=== PATIENT | male | born 1945 | race Caucasian/White ===

== ENCOUNTER 2016-05-31 05:13 | Day surgery (SDC) | payer MEDICARE, OTHER ==
[~2016-05-31] VITALS: Ht 170.2 cm; Wt 81.6 kg
[~2016-05-31 05:13] MED LIST: ACET325T33 PO; AMLO-145 PO; AMPI3VIA5 IVPB; ASPI81TA3 PO; ATOR40TA68 PO; Accu-Chek Test Strip XX; CHOL100062 PO; CLON-379 PO; DEXT37.54 BUCCAL; DEXT37.54 PO; DEXT50DI9 IV; DOCU-144 PO; DOXA2TAB61 PO; Docusate Sodium/Ferrous Fumar PO; FENO145T25 PO; GLUC1VIA7 IM; HEP5KI SC; HYDR-3504 PO; HYDR-3672 PO; LANT3I SC; LISI20TA11 PO; MCN2C15 TOP; Miscellaneous Information XX; NOVO3I SC; NS3ML IV; ONDA4TAB95 PO; PANT40TA4 PO; SODI473S19 IRR; TYL650R PR; UDMOM PO; ZOF4I IV; [UNRECOGNIZED DRUG - CODE] PO
[2016-05-31] MEDS ORDERED: TROPICAMIDE 1% 2 ML OPH OPER SCH (05:30)
[2016-05-31] MEDS ORDERED: CIPROFLOXACIN 0.3% 2.5 ML OPH OPER SCH (05:30)
[2016-05-31] MEDS ORDERED: CYCLOPENTOLATE/PHENYLEPH 2 ML OPH OPER SCH (05:30)
[2016-05-31] MEDS ORDERED: DICLOFENAC 0.1% 2.5 ML OPH OPER SCH (05:30)
[2016-05-31 06:10] VITALS: Ht 170.2 cm; Wt 81.6 kg
[2016-05-31 06:17] VITALS: BP 134/52; PULSE 58; RESP 18
[2016-05-31] MEDS ORDERED: CARBACHOL 0.01% 1.5 ML OPH INJ ONE (06:30)
[2016-05-31] MEDS ORDERED: CEFAZOLIN 1 GM INJ ONE (06:30)
[2016-05-31] MEDS ORDERED: EPINEPHrine 1 MG INJ ONE (06:31)
[2016-05-31] MEDS ORDERED: GENTAMICIN 80 MG INJ ONE (06:31)
[2016-05-31] MEDS ORDERED: DEXAMETHASONE 4 MG/ML 1 ML INJ ONE (06:31)
[2016-05-31] MEDS ORDERED: HYALURONATE/CHONDROITIN 1ML OPH INJ ONE (06:32)
[2016-05-31] MEDS ORDERED: LIDOCAINE 4% (MPF) 5 ML INJ ONE (06:32)
--- NOTE | 2016-05-31 06:34 | PREOPHP ---
DATE OF ADMISSION: 05/31/2016 HISTORY OF PRESENT ILLNESS: This 70-year-old patient is admitted for elective cataract surgery of t he left eye. The patient has had decreased vision over the past years' time and has been under karissa tment for proliferative diabetic retinopathy for which he has received intravitreal Avastin injectio ns which has caused the progression of the cataract formation in the left eye. The patient has also had a vitreous hemorrhage in the right eye secondary to his diabetic eye disease, which has current ly resolved. The patient's systemic history is positive for insulin-dependent diabetes mellitus, sy stemic hypertension and hypercholesterolemia. CURRENT MEDICATIONS INCLUDE: 1. Hydralazine. 2. Clopidogrel. 3. Amlodipine. 4. Lisinopril. 5. Tricor. 6. Atorvastatin. 7. Terazosin. 8. Insulin. 9. Victoza. PHYSICAL EXAMINATION: The visual acuity with best correction is 20/40 in the right eye and 20/100 i n the left eye. Slit lamp examination reveals a ptosis of the right upper eyelid. The patient has anterior cortical and nuclear sclerotic cataracts present in both eyes. Applanation tonometry is 15 mmHg. Examination of the retina reveals no evidence of macular edema in the right eye and some min imal macular edema with epiretinal membrane in the left eye. DIAGNOSIS: Cataract, left eye. PLAN: Cataract extraction with lens implant, left eye. The risks and alternatives to the surgery h ave been discussed with the patient as well as the potential limitation of improved visual acuity du e to the history of proliferative diabetic retinopathy and diabetic macular edema. The patient unde rstands this and agrees to proceed with surgery in hopes of improving visual acuity leading to a gre ater ability to perform activities of daily living. Dictated By: EDUARD SHAFFER/RAMEZ Conf#: [id number] DID#: [id number]
[2016-05-31] MEDS ORDERED: LACT1CAP47 PO (06:41)
[2016-05-31] MEDS ORDERED: CLOP75TA4 PO (06:41)
[2016-05-31] MEDS ORDERED: TERA2CAP3 PO (06:41)
[2016-05-31] MEDS ORDERED: victoza (06:41)
[2016-05-31] MEDS ORDERED: LANT3I SC (06:41)
[2016-05-31] MEDS ORDERED: CEFAZOLIN 1 GM INJ INJ ONE (06:57)
[2016-05-31] MEDS ORDERED: DEXAMETHASONE 4 MG/ML 1 ML INJ INJ ONE (06:57)
[2016-05-31] MEDS ORDERED: CARBACHOL 0.01% 1.5 ML OPH INJ IO ONE (06:57)
[2016-05-31] MEDS ORDERED: HYALURONATE/CHONDROITIN 1ML OPH INJ IO ONE (06:57)
[2016-05-31] MEDS ORDERED: PROPOFOL 20 ML ONE (07:34)
[2016-05-31] MEDS ORDERED: DIPHENHYDRAMINE 50 MG INJ IV PRN (08:00)
[2016-05-31] MEDS ORDERED: METOCLOPRAMIDE 10 MG INJ IV PRN (08:00)
[2016-05-31] MEDS ORDERED: MIDAZOLAM 1 MG/ML 2 ML INJ IV PRN (08:00)
[2016-05-31] MEDS ORDERED: MEPERIDINE 25 MG INJ IV PRN (08:00)
[2016-05-31] MEDS ORDERED: FENTAnyl 50 MCG/ML VIAL IV PRN ×2 (08:00)
[2016-05-31] MEDS ORDERED: ONDANSETRON 4 MG INJ IV PRN (08:00)
[2016-05-31 08:01] VITALS: BP 141/52; PULSE 57; RESP 16
[2016-05-31 08:03] VITALS: BP 141/52; PULSE 57; RESP 16
[2016-05-31 08:06] VITALS: BP 132/54; PULSE 56; RESP 18
[2016-05-31 08:11] VITALS: BP 117/57; PULSE 56; RESP 19
[2016-05-31 08:48] VITALS: BP 131/59; PULSE 63; RESP 18
--- NOTE | 2016-05-31 09:39 | OPR ---
DATE OF OPERATION: 05/31/2016 PREOPERATIVE DIAGNOSIS: Cataract, left eye. POSTOPERATIVE DIAGNOSIS: Cataract, left eye. NAME OF PROCEDURE: Cataract extraction with lens implant, left eye. SURGEON: Eduard Manjarrez MD ANESTHESIA: Local standby. ANESTHESIOLOGIST: Dr. Bello. OPERATION: Phacoemulsification with posterior chamber intraocular lens implant, left eye. PROCEDURE: The patient was brought to the operating room and placed on the table with an IV in plac e and the patient attached to an early morning. Oxygen was given via face mask. After some intravenous sedation was administered, local anesthesia was given using Xylocaine 2% with epinephrine, mixed with Marcaine 0.5%. This was given in a lid block and retrobulbar injection. The patient was then prepped and draped in the usual sterile manner. A wire lid speculum was inserted between the lids of the left eye. A Superblade was used to enter th e anterior chamber at the corneoscleral limbus at the 10:30 o'clock position. A separate incision wa s made using a 3.0-mm keratome which entered the corneoscleral junction at the 12 o'clock position. Through this 3-mm opening, an irrigating cystitome was introduced into the anterior chamber. The jung mber was filled with Viscoat and an anterior capsulotomy was performed. Balanced salt solution was t hen used for hydrodissection of the lens. A phacoemulsification handpiece was then brought into the field and introduced into the anterior chamber. The lens nucleus was emulsified using a deep groove and cracking the nucleus into quadrants. Following this, each quadrant was aspirated and emulsified at the pupillary margin. After this was completed, the irrigation/aspiration handpiece was brought to the field, introduced i nto the posterior chamber, and the lens cortical material was removed. When this was completed, earnest tional Viscoat was injected into the anterior and posterior chambers. The 3-mm opening had its internal lips enlarged, and then the posterior chamber intraocular lens avani suring 20.5 diopter (Bausch and Lomb model LI61AO) was then injected into the posterior chamber usin g the lens injector system. After the leading haptic was introduced into the capsular bag and the le ns optic was present in the center of the eye, the injector was removed and the trailing haptic was grasped with non-toothed forceps and introduced into the capsular fold superiorly. A Sinskey hook wa s then used to rotate the intraocular lens so that the lips were oriented in the horizontal meridian . One 10-0 nylon suture was placed across the wound. Prior to tying, the irrigation/aspiration handpiece was reintroduced into the anterior chamber to re move the Viscoat. Miochol was instilled to constrict the pupil, and then the 10-0 nylon suture was t ied. The ends were cut short and then the knot was buried. Then, 0.5 mL of dexamethasone and 0.5 mL of Ancef were injected into the sub-Tenon space in the infe rior fornix. Ciloxan drops were then placed on the surface of the eye. The speculum was removed and a patch was applied. The patient then left the operating room in satisfactory condition. Dictated By: EDUARD SHAFFER/RAMEZ Conf#: [id number] DID#: [id number]
== END 2016-05-31 09:13 | disposition home or self-care (01) ==
LOC: SDS 05:13
PROVIDERS: ATTEND Ophthalmology
DX: H25.12 Age-related nuclear cataract, left eye (principal); E11.9 Type 2 diabetes mellitus without complications; I25.10 Atherosclerotic heart disease of native coronary artery without angina pectoris; E78.5 Hyperlipidemia, unspecified; Z95.1 Presence of aortocoronary bypass graft; Z95.0 Presence of cardiac pacemaker
CPT/HCPCS: 66984; 82962; J0171; J0690; J1100; J1580; V2632

== ENCOUNTER 2018-09-04 09:32 | Day surgery (SDC) | payer MEDICARE, OTHER ==
[~2018-09-04] VITALS: Ht 170.2 cm; Wt 83.0 kg
[2018-09-04] VITALS (16 sets, daily range): BP systolic 143–192; BP diastolic 60–80; PULSE 49–50; RESP 16–27; Ht 170.2 cm; Wt 83.0 kg
[~2018-09-04 09:32] MED LIST changes: +ASPI-903 PO; -ASPI81TA3 PO; +CARV6.2579 PO; +CEFAZOLIN 2 GM/50 ML (PMX) 50 ML IVPB ONE; +CLOP75TA19 PO; +CLOP75TA27 PO; +CYAN500T46 PO; +FURO40TA4 PO; +INSU200I4 SQ; +LACT1CAP47 PO; +LISI-471 PO; -LISI20TA11 PO; +TERA2CAP3 PO; +victoza
[2018-09-04] MEDS ORDERED: ACETAMINOPHEN 500 MG TAB ONE (11:06)
[2018-09-04] MEDS ORDERED: ACETAMINOPHEN 500 MG TAB PO ONE (11:30)
[2018-09-04] MEDS ORDERED: MIDAZOLAM 1 MG/ML 2 ML INJ ONE (11:42)
[2018-09-04] MEDS ORDERED: LIDOCAINE 2% (SDV) 5 ML INJ ONE (11:42)
[2018-09-04] MEDS ORDERED: FENTAnyl 50 MCG/ML VIAL ONE (11:42)
[2018-09-04] MEDS ORDERED: PROPOFOL 60 ML ONE (11:42)
[2018-09-04] MEDS ORDERED: PROPOFOL 200 MG INJ ONE (11:42)
[2018-09-04] MEDS ORDERED: CEFAZOLIN 1 GM INJ ONE (11:42)
--- NOTE | 2018-09-04 12:08 | HPN ---
Date/Time of Note Date/Time of Note DATE: 09/04/18 TIME: 12:08 Interval H&P Admission Note Pt. seen H&P reviewed: No system changes MIGUEL BERNAL DPM Sep 04, 2018 12:08
[2018-09-04] MEDS ORDERED: ONDANSETRON 4 MG INJ IV PRN ×2 (12:30→13:00)
[2018-09-04] MEDS ORDERED: HYDROCODONE/APAP (5/325) TAB PO PRN (12:30)
--- NOTE | 2018-09-04 12:36 | PREAC ---
Date/Time of Note Date/Time of Note DATE: 09/04/18 TIME: 12:30 Anesthesia Eval and Record Evaluation Time Pre-Procedure Interview DATE: 09/04/18 TIME: 12:30 Age 73 Sex male NPO: 8 hrs Preoperative diagnosis R foot osteomyelitis 2nd metatarsal Planned procedure R foot 2nd digit and partial 2nd ray amputation Past Medical History Past Medical History: Includes Cardio: HTN, Dyslipidemia, CAD, CABG, PTCA/Stent, Other (aortic stenosis, mild ) Endo: Diabetes, Other (PVD) Renal: CKD Heme: Anemia Surgery & Anesthesia Issues No known issue (pacemaker, CABG, parathyroid surgery, PTCA stent) Meds Anticoagulation: No Beta Lina within 24 hr: Yes Reported Medications Insulin Degludec (Tresiba Flextouch U-200) 200 Unit/1 Ml Insuln.pen, 22 UNIT SQ AC BREAKFAST DINNER 09/04/18 Furosemide* (Furosemide*) 40 Mg Tablet, 40 MG PO MON-, TAB 09/04/18 Terazosin Hcl* (Terazosin Hcl*) 2 Mg Capsule, 4 MG PO HS, CAP 09/04/18 Atorvastatin* (Atorvastatin*) 40 Mg Tablet, 40 MG PO QHS, #30 TAB 09/04/18 Lisinopril* (Lisinopril*) 20 Mg Tablet, 20 MG PO DAILY, #30 TAB 09/04/18 Clopidogrel Bisulfate (Clopidogrel) 75 Mg Tablet, 75 MG PO DAILY, #30 TAB 09/04/18 Carvedilol* (Carvedilol*) 6.25 Mg Tablet, 6.25 MG PO BID, #60 TAB 09/04/18 Hydralazine Hcl* (Hydralazine Hcl*) 50 Mg Tab, 50 MG PO TID, #90 TAB 09/04/18 Cholecalciferol* (Vitamin D3*) 1,000 Unit Tablet, 1000 UNIT PO DAILY, TAB 09/04/18 Cyanocobalamin* (Vitamin B12*) 500 Mcg Tab, 1000 MCG PO DAILY, TAB 09/04/18 Discontinued Reported Medications [victoza] No Conflict Check 05/31/16 Insulin Glargine* (Lantus*) 100 Unit/Ml Soln, 10 UNIT SC BID, #1 VIAL 05/31/16 Terazosin Hcl* (Terazosin Hcl*) 2 Mg Capsule, 2 MG PO HS, CAP 05/31/16 Lactobacillus Acidophilus (Probiotic) 1 Each Capsule, 1 CAP PO DAILY, CAP 05/31/16 Clopidogrel Bisulfate* (Clopidogrel Bisulfate*) 75 Mg Tablet, 75 MG PO DAILY, #30 TAB 05/31/16 Fenofibrate Nanocrystallized* (Tricor*) 145 Mg Tablet, 145 MG PO DAILY, TAB 07/14/14 Atorvastatin* (Atorvastatin*) 40 Mg Tablet, 40 MG PO HS, TAB 07/14/14 Lisinopril* (Lisinopril*) 20 Mg Tablet, 20 MG PO BID, TAB 07/14/14 Amlodipine Besylate* (Amlodipine Besylate*) 5 Mg Tablet, 5 MG PO BID, TAB 07/14/14 Cholecalciferol* (Vitamin D3*) 1,000 Unit Tablet, PO DAILY, TAB 07/14/14 Cyanocobalamin* (Vitamin B-12*) 2,000 Mcg Tablet.sa, PO, TAB 07/14/14 Aspirin* (Aspirin* Chew) 81 Mg Tab.chew, 81 MG PO DAILY, TAB.CHEW 07/14/14 Discontinued Scripts Ampicillin Sodium-Sulbactam Sodium (Unasyn*) 3 Gm/100 Ml Iv.soln., 3 GM IVPB Q8 for 4 Days, EA Prov:LEÓN MALIK MD 05/15/15 Sodium Chloride* (NS* 3 ml (Saline Flush)) 3 Ml Soln, 3 ML IV .PER PROTOCOL for 30 Days Prov:LEÓN MALIK MD 05/15/15 Sodium Hypochlorite (Dakin's (1/4 Strength)) 1 Applic Irrig.soln, 1 APPLIC IRR BID, #30 Prov:LEÓN MALIK MD 05/15/15 Pantoprazole* (Pantoprazole*) 40 Mg Tabec, 40 MG PO DAILY@06, #30 Prov:LEÓN MALIK MD 05/15/15 Ondansetron Hcl* (Zofran*) 2 Mg/Ml Soln, 4 MG IV Q6H PRN for NAUSEA AND/OR V OMITING for 30 Days Prov:LEÓN MALIK MD 05/15/15 Ondansetron Hcl* (Ondansetron Hcl*) 4 Mg Tab, 4 MG PO Q6H PRN for NAUSEA AND/OR VOMITING for 30 Days, TAB Prov:LEÓN MALIK MD 05/15/15 Ondansetron Hcl* (Zofran*) 2 Mg/Ml Soln, 4 MG IV Q4H PRN for NAUSEA AND/OR VOMITING for 30 Days Prov:LEÓN MALIK MD 05/15/15 [Miscellaneous Information] 1 EA EA No Conflict Check, 1 EA XX NOTE, #30 EA Prov:LEÓN MALIK MD 05/15/15 Miconazole Nitrate* (Miconazole Nitrate*) 1 Applic Cr, 1 APPLIC TOP BID, #30 Prov:LEÓN MALIK MD 05/15/15 Magnesium Hydroxide* (Alejandra' MOM*) 30 Ml Susp, 30 ML PO DAILY PRN for CONSTIPATION, #30 Prov:LEÓN MALIK MD 05/15/15 Insulin Glargine* (Lantus*) 100 Unit/Ml Soln, 12 UNIT SC Q12 for 30 Days Prov:LEÓN MALIK MD 05/15/15 Insulin Aspart* (Novolog Insulin Pen*) 100 Unit/Ml Soln, 0 UNIT SC WITH MEALS BEDTIME, #30 Prov:LEÓN MALIK MD 05/15/15 Insulin Aspart* (Novolog Insulin Pen*) 100 Unit/Ml Soln, 10 UNIT SC WITH MEALS, #30 Prov:LEÓN MALIK MD 05/15/15 Hydrocodone Bit-Acetaminophen (Hydrocodone-APAP) 1 Tab Tab, 1 TAB PO Q6H PRN for pain for 30 Days, TAB Prov:LEÓN MALIK MD 05/15/15 Hydralazine Hcl* (Hydralazine Hcl*) 50 Mg Tab, 100 MG PO TID for 30 Days, TAB Prov:LEÓN MALIK MD 05/15/15 Heparin Sodium,Porcine/Pf (Heparin Na 5,000 Units/0.5 Ml) 5,000 Unit/0.5 Ml Soln, 5000 UNIT SC Q8 for 30 Days Prov:LEÓN MALIK MD 05/15/15 Glucagon* (Glucagen*) 1 Mg Soln, 1 MG IM Q15M PRN for DECREASED GLUCOSE for 30 Days Prov:LEÓN MALIK MD 05/15/15 Doxazosin Mesylate* (Cardura*) 2 Mg Tab, 4 MG PO HS, #30 TAB Prov:LEÓN MALIK MD 05/15/15 [Docusate Sodium/Ferrous Fumar] 1 TAB TABSR No Conflict Check, 1 TAB PO BID, #30 TAB Prov:LEÓN MALIK MD 05/15/15 Docusate Sodium* (Colace*) 100 Mg Cap, 100 MG PO Q12H PRN for CONSTIPATION, #30 CAP Prov:LEÓN MALIK MD 05/15/15 Dextrose (Glutose 15) 15 Gm Gel, 15 GM BUCCAL Q15M PRN for DECREASED GLUCOSE for 30 Days Prov:LEÓN MALIK MD 05/15/15 Dextrose (D50w) 50 Ml Soln, 50 ML IV Q15M PRN for DECREASED GLUCOSE for 30 Days Prov:LEÓN MALIK MD 05/15/15 Dextrose (D50w) 50 Ml Soln, 25 ML IV Q15M PRN for DECREASED GLUCOSE for 30 Days Prov:LEÓN MALIK MD 05/15/15 Dextrose (Glutose 15) 15 Gm Gel, 22.5 GM PO Q15M PRN for DECREASED GLUCOSE for 30 Days Prov:LEÓN MALIK MD 05/15/15 Dextrose (Glutose 15) 15 Gm Gel, 15 GM PO Q15M PRN for DECREASED GLUCOSE for 30 Days Prov:LEÓN MALIK MD 05/15/15 Clonidine Hcl* (Clonidine Hcl*) 0.1 Mg Tab, 0.1 MG PO TID PRN for HTN for 30 Days, TAB Prov:LEÓN MALIK MD 05/15/15 Acetaminophen* (Acephen*) 650 Mg Supp, 650 MG MT Q6H PRN for PAIN LEVEL 1-3 OR FEVER for 30 Days, SUPP Prov:LEÓN MALIK MD 05/15/15 Acetaminophen* (Tylenol*) 325 Mg Tab, 650 MG PO Q6H PRN for PAIN LEVEL 1-3 OR FEVER for 30 Days, TAB Prov:LEÓN MALIK MD 05/15/15 [Accu-Chek Test Strip] 1 EA EA No Conflict Check, 1 EA XX AC MEALS AND BEDTIME for 30 Days, EA Prov:LEÓN MALIK MD 05/15/15 [Accu-Chek Test Strip] 1 EA EA No Conflict Check, 1 EA XX 02 for 30 Days, EA Prov:LEÓN MALIK MD 05/15/15 Meds reviewed: Yes Allergies Coded Allergies: No Known Drug Allergies (Verified Allergy, Unknown, 09/04/18) Allergies Reviewed: Yes Labs/Studies Labs Reviewed: Reviewed by anesthesiologist Result Diagram: 09/04/18 1040 Laboratory Tests 09/04/18 10:40 test: N/A Studies: ECG (pacemaker), CXR (no active disease) Pre-procedure Exam Last vitals Vital Signs Date Temp Pulse Resp B/P (MAP) Pulse Ox O2 O2 Flow FiO2 Time Delivery Rate 09/04/18 97.2 50 16 176/77 99 Room Air 10:57 (110) Airway: Adequate mouth opening, Adequate thyromental dist Mallampati: Mallampati II Teeth: Normal Lung: Normal Heart: Normal ASA Physical Status ASA physical status: 3 Emergency: None Planned Anesthetic General/MAC: MAC Pre-operative Attestations Prior to commencing anesthesia and surgery, the patient was re-evaluated, there was verification of: *The patient's identity *The results of appropriate recent lab work and preoperative vital signs *The above evaluation not changing prior to induction *Anesthetic plan, risk benefits, alternative and complications discussed with patient/family; questions answered; patient/family understands, accepts and wishes to proceed. CARLITA DEGROOT Sep 04, 2018 12:36
[2018-09-04] MEDS ORDERED: LIDOCAINE 1% (MPF) 30 ML INJ ONE (12:48)
[2018-09-04] MEDS ORDERED: POLYMYXIN/BACITRACIN 1L IRRIG ONE (12:48)
[2018-09-04] MEDS ORDERED: BUPIVACAINE 0.25% (MPF) 30 ML INJ ONE (12:48)
[2018-09-04] MEDS ORDERED: LABETALOL HCL 20MG INJ IV PRN (13:00)
[2018-09-04] MEDS ORDERED: HYDROmorphONE 1 MG/5 ML IV SYRINGE IV PRN ×3 (13:00)
[2018-09-04] MEDS ORDERED: hydrALAzine 20 MG INJ IV PRN (13:00)
[2018-09-04] MEDS ORDERED: morphine 2 MG INJ IV PRN ×2 (13:00)
[2018-09-04] MEDS ORDERED: EPHEDrine 25 MG/5 ML SYG IV PRN (13:00)
[2018-09-04] MEDS ORDERED: DIPHENHYDRAMINE 50 MG INJ IV PRN (13:00)
[2018-09-04] MEDS ORDERED: FENTAnyl 50 MCG/ML VIAL IV PRN ×2 (13:00)
[2018-09-04] MEDS ORDERED: MEPERIDINE 25 MG INJ IV PRN (13:00)
[2018-09-04] MEDS ORDERED: OXYCODONE/ACETAMINOPHEN (5/325) TAB PO PRN ×2 (13:00)
[2018-09-04] MEDS ORDERED: ALBUTEROL 0.083% (NEB) 2.5 MG/3 ML AMP HHN PRN (13:00)
[2018-09-04] MEDS ORDERED: PHENYLephrine (100 MCG/ML) 10ML SYG ONE (13:09)
[2018-09-04] MEDS ORDERED: EPHEDrine 25 MG/5 ML SYG ONE (13:22)
--- NOTE | 2018-09-04 14:05 | SIPON ---
Date/Time of Note Date/Time of Note DATE: 09/04/18 TIME: 14:03 Operative Report Preoperative Diagnosis Right foot osteomyelitis Postoperative Diagnosis Same Operation/Procedure Performed Right 2nd digit and partial 2nd ray amputation. Surgeon see signature line loan assistant N/A Anesthesia: MAC Estimated blood loss: 10 - 50 ml's Transfusion Required none Specimen Right 2nd digit and partial bone of 2nd ray. Grafts/Implants none Complications none MIGUEL BERNAL DPM Sep 04, 2018 14:05
--- NOTE | 2018-09-04 14:06 | PAC ---
Date/Time of Note Date/Time of Note DATE: 09/04/18 TIME: 14:05 Post-Anesthesia Notes Post-Anesthesia Note Last documented vital signs Vital Signs Date Temp Pulse Resp B/P Pulse Ox O2 O2 Flow FiO2 Time (MAP) Delivery Rate 09/04/18 97.2 99.7 50 50 16 16 176/77 99 100 Room 10:57 135 (110) 14 Air face 9 8/60 mask 6L Activity: WNL Respiratory function: WNL Cardiovascular function: WNL Mental status: Baseline Pain reasonably controlled: Yes Hydration appropriate: Yes Nausea/Vomiting absent: Yes CARLITA DEGROOT Sep 04, 2018 14:06
--- NOTE | 2018-09-04 14:13 | OPR ---
Date/Time of Note Date/Time of Note DATE: 09/04/18 TIME: 14:05 Operative Report Preoperative Diagnosis Right foot osteomyelitis Postoperative Diagnosis same Operation/Procedure Performed Right 2nd digit amputation with 2nd ray partial amputation. Surgeon see signature line Cabbage Salter N/A Anesthesia Type: MAC Tourniquet Time: 22 minutes Estimated Blood Loss: 10 - 50 ml's Transfusion none Specimen Right 2nd digit and right partial 2nd ray. Grafts/Implants none Complications none Pt Condition Post Procedure: stable Disposition: PACU Procedure Description Patient brought into operation room and placed operating table in supine posit ion. Patient placed under MAC anesthesia per anesthiologist. Right foot modified ankle block using 10 cc Lidocaine 2% plain mixed with 0.25 percent Marcaine plain. Ankle tourniquet applied to right ankle. Right foot and ankle was prepped and draped in usual sterile manner. Ankle tourniquet inflated to 225 mmHG. Incision was made across patient's previous incision for his partial 1st ray amputation. Incision was continued to 2nd digit and 2nd digit was disarticulated. Bony changes base of 2nd digit and 2nd metatarsal noted consistent with osteomyelitis. 2nd digit was sent out to pathology. Right 2nd partial ray amputation was performed using saggital saw, bone sent for pathology. Debridement of tissue with rongeur. Copious lavage with saline mixed with Bacitracin. Tourniquet deflated with running time of 22 minutes. Hemostasis accomplished with sergicel and bovie. Wound closure with 2.0 Nylon. Appropriate dressing with xeroform, 4x4, simi and bias. Patient tolerated procedure well and transferred to recovery area with all vital signs with in normal limit. He will be patial weight bearing in post/op shoe, partial weight bearing with ela boateng. Follow up with me with in 5-7 days. MIGUEL BERNAL DPM Sep 04, 2018 14:13
== END 2018-09-04 17:10 | disposition home or self-care (01) ==
LOC: SDS 09:32
PROVIDERS: ATTEND Podiatrist Foot & Ankle Surgery
DX: M86.8X7 Other osteomyelitis, ankle and foot (principal); E11.9 Type 2 diabetes mellitus without complications; I25.10 Atherosclerotic heart disease of native coronary artery without angina pectoris; I73.9 Peripheral vascular disease, unspecified; E11.22 Type 2 diabetes mellitus with diabetic chronic kidney disease; I12.9 Hypertensive chronic kidney disease with stage 1 through stage 4 chronic kidney disease, or unspecified chronic kidney disease; N18.9 Chronic kidney disease, unspecified
CPT/HCPCS: 28810; 73620; 80048; 82962; 88305; 88311; 97116; 97162; J0360; J0690; J2250; J2370; J3010